=== PATIENT | female | born 1960 ===

== ENCOUNTER 2017-12-08 23:37 | Observation (INO) | payer MEDICARE, OTHER ==
[~2017-12-08] VITALS: Ht 162.6 cm; Wt 65.8 kg
[2017-12-09 04:03] LABS: BASOPHILS ABSOLUTE AUTO 0.11 K/mm3 (0.00-0.23); BASOPHILS PERCENT AUTO 1 % (0-2); EOSINOPHILS ABSOLUTE AUTO 0.29 K/mm3 (0.00-0.68); EOSINOPHILS PERCENT AUTO 2 % (0-6); Hemoglobin 15.1 g/dL (11.5-16.0); IMMATURE GRAN ABSOLUTE AUTO 0.02 K/mm3 (0.00-0.10); IMMATURE GRAN PERCENT AUTO 0 % (0-1); LYMPHOCYTES ABSOLUTE AUTO 4.88 K/mm3 (0.84-5.20); LYMPHOCYTES PERCENT AUTO 40 % (21-46); MONOCYTES ABSOLUTE AUTO 1.03 K/mm3 (0.16-1.47); MONOCYTES PERCENT AUTO 8 % (4-13); Mean Corpuscular HGB 32.1 pg (26.0-34.0); Mean Corpuscular HGB Conc 32.1 g/dL (31.5-36.5); Mean Corpuscular Volume 100 fL (80-100); Mean Platelet Volume 10.2 fL (9.1-12.4); NEUTROPHILS ABSOLUTE AUTO 5.96 K/mm3 (1.96-9.15); NEUTROPHILS PERCENT AUTO 48 % (41-73); Platelet Count 261 K/mm3 (150-400); RDW Coefficient Variation 12.1 % (11.7-14.2); RDW Standard Deviation 45.1 fL (35.1-46.3); White Blood Cell Count 12.29 K/mm3 (4.00-11.30)
[2017-12-09 04:29] LABS: Ethanol (Alcohol), Blood, Med <3 mg/dL; Salicylate 2.5 mg/dL (2.8-20.0); Valproic Acid 9.6 ug/mL (50.0-100.0)
[2017-12-09 04:30] LABS: Alanine Aminotransfer (ALT/SGP 34 U/L (12-78); Albumin/Globulin Ratio 1.1 (0.8-1.8); Alk Phos 66 U/L (50-136); Anion Gap 13 mmol/L (6-16); Aspartate Aminotrans (AST/SGOT 34 U/L (12-37); Bilirubin, Total 0.4 mg/dL (0.1-1.0); Blood Urea Nitrogen 14 mg/dL (8-24); Bun/Creatinine Ratio 19.5 (12.0-20.0); CO2, Blood 22 mmol/L (21-32); Calcium, Blood 9.8 mg/dL (8.5-10.1); Chloride, Blood 106 mmol/L (98-108); Creatinine, Blood 0.72 mg/dL (0.40-1.00); Globulin, Blood 3.7 g/dL (2.2-4.0); Glomerular Filtration Rate >60 (60-); Glucose, Blood 90 mg/dL (70-99); Potassium, Blood 3.9 mmol/L (3.5-5.5); Sodium, Blood 141 mmol/L (136-145); Thyroid Stimulating Hormone 0.142 uIU/mL (0.360-4.800); Total Protein, Blood 7.7 g/dL (6.4-8.2)
[2017-12-09 04:35] LABS: Lithium <0.20 mmol/L (0.60-1.20)
[2017-12-09 04:37] LABS: Acetaminophen, Random <2.0 ug/mL (10.0-30.0)
[2017-12-09] MEDS ORDERED: DIVA500EC PO (05:23)
[2017-12-09] MEDS ORDERED: LEVSOD125 PO (05:24)
[2017-12-09] MEDS ORDERED: LITH300ER PO (05:24)
[2017-12-10 12:03] LABS: Source, Urine Voided
[2017-12-10 12:05] LABS: Bilirubin, Urine Neg (Neg); Blood, Urine Neg (Neg); Glucose Qualitative, Urine Neg (Neg); Ketones, Urine Neg (Neg); Leukocyte Esterase, Urine Neg (Neg); Nitrite, Urine Neg (Neg); Protein, Urine Neg (Neg); Urobilinogen, Urine NORM (Normal); pH, Urine 6.5 (5.0-8.0)
[2017-12-10 12:18] LABS: Appearance, Urine Clear (Clear); Color, Urine Yellow (P-Yellow)
[2017-12-10 12:26] LABS: U Amphetamine Screen Not Detected; U Barbituate Screen Not Detected; U Benzodiazapine Screen Not Detected; U Buprenorphine Screen Not Detected; U Cannabinoids Screen Not Detected; U Cocaine Screen Not Detected; U Methadone Screen Not Detected; U Methamphetamine Screen Not Detected; U Opiates Screen Not Detected; U Oxycodone Screen Not Detected; U Phencyclidine Screen Not Detected; U Propoxyphene Screen Not Detected
== END 2017-12-10 22:05 ==
LOC: ER 23:37 → EOR 12-09 03:36
PROVIDERS: Emergency Medicine
DX: F23 Brief psychotic disorder (principal); F31.9 Bipolar disorder, unspecified; F25.9 Schizoaffective disorder, unspecified; Z79.899 Other long term (current) drug therapy
CPT/HCPCS: 80053; 80164; 80178; 81003; 81025; 84443; 85025; 96372; 99285-25; G0378; G0480

== ENCOUNTER 2021-08-27 21:19 | Observation (INO) | payer MEDICARE, OTHER ==
[~2021-08-27] VITALS: Ht 157.5 cm; Wt 54.8 kg
[~2021-08-27 21:19] MED LIST: DIVA500EC PO; LEVSOD125 PO; LITH300ER PO
[2021-08-27 22:09] LABS: Source, Urine Clean Catch
[2021-08-27 22:25] LABS: BASOPHILS PERCENT AUTO 1 % (0-2); EOSINOPHILS ABSOLUTE AUTO 0.13 K/mm3 (0.00-0.68); EOSINOPHILS PERCENT AUTO 2 % (0-6); Hematocrit 47.7 % (33.0-51.0); Hemoglobin 15.3 g/dL (11.5-16.0); IMMATURE GRAN ABSOLUTE AUTO 0.02 K/mm3 (0.00-0.10); IMMATURE GRAN PERCENT AUTO 0 % (0-1); LYMPHOCYTES ABSOLUTE AUTO 1.96 K/mm3 (0.84-5.20); LYMPHOCYTES PERCENT AUTO 24 % (21-46); MONOCYTES ABSOLUTE AUTO 0.55 K/mm3 (0.16-1.47); MONOCYTES PERCENT AUTO 7 % (4-13); Mean Corpuscular HGB 31.9 pg (26.0-34.0); Mean Corpuscular HGB Conc 32.1 g/dL (31.5-36.5); Mean Corpuscular Volume 99 fL (80-100); Mean Platelet Volume 9.6 fL (9.1-12.4); NEUTROPHILS ABSOLUTE AUTO 5.55 K/mm3 (1.96-9.15); NEUTROPHILS PERCENT AUTO 67 % (41-73); Platelet Count 291 K/mm3 (150-400); RDW Coefficient Variation 12.9 % (11.7-14.2); RDW Standard Deviation 47.6 fL (35.1-46.3); White Blood Cell Count 8.31 K/mm3 (4.00-11.30)
[2021-08-27 23:02] LABS: Lithium <0.20 mmol/L (0.60-1.20)
[2021-08-27 23:05] LABS: Alanine Aminotransfer (ALT/SGP 22 U/L (12-78); Albumin, Blood 3.7 g/dL (3.4-5.0); Alk Phos 73 U/L (50-136); Anion Gap 7 mmol/L (6-16); Aspartate Aminotrans (AST/SGOT 22 U/L (12-37); Bilirubin, Total 0.4 mg/dL (0.1-1.0); Blood Urea Nitrogen 21 mg/dL (8-24); Bun/Creatinine Ratio 21.6 (12.0-20.0); CO2, Blood 24 mmol/L (21-32); Calcium, Blood 10.4 mg/dL (8.5-10.1); Chloride, Blood 112 mmol/L (98-108); Creatinine, Blood 0.97 mg/dL (0.40-1.00); Ethanol (Alcohol), Blood, Med <3 mg/dL; Free Thyroxine 0.95 ng/dL (0.70-1.60); Globulin, Blood 3.7 g/dL (2.2-4.0); Glomerular Filtration Rate 58 (60-); Glucose, Blood 111 mg/dL (70-99); Potassium, Blood 3.7 mmol/L (3.5-5.5); Sodium, Blood 143 mmol/L (136-145); Total Protein, Blood 7.4 g/dL (6.4-8.2); Triiodothyronine, Free 2.16 pg/mL (2.18-3.98)
[2021-08-27 23:06] LABS: Bilirubin, Urine Neg (Neg); Blood, Urine 5+ (Neg); Glucose Qualitative, Urine Neg (Neg); Ketones, Urine Neg (Neg); Leukocyte Esterase, Urine 3+ (Neg); Nitrite, Urine Neg (Neg); Protein, Urine 2+ (Neg); Urobilinogen, Urine NORM (Normal); pH, Urine 6.5 (5.0-8.0)
[2021-08-27 23:10] LABS: Acetaminophen, Random <2.0 ug/mL (10.0-30.0)
[2021-08-27 23:10] LABS: U Amphetamine Screen Not Detected; U Barbituate Screen Not Detected; U Benzodiazapine Screen Not Detected; U Buprenorphine Screen Not Detected; U Cannabinoids Screen Not Detected; U Cocaine Screen Not Detected; U Methadone Screen Not Detected; U Methamphetamine Screen Not Detected; U Opiates Screen Not Detected; U Oxycodone Screen Not Detected; U Phencyclidine Screen Not Detected; U Propoxyphene Screen Not Detected
[2021-08-27 23:12] LABS: Appearance, Urine Cloudy (Clear); Color, Urine Yellow (P-Yellow)
[2021-08-27 23:22] LABS: White Blood Cells, Urine TNTC /hpf (0-5)
[2021-08-27 23:23] LABS: Bacteria Many /hpf; Squamous Epithelial Cells Mod /hpf (Few)
[2021-08-28 06:39] LABS: Influenza A, PCR NEGATIVE (NEGATIVE); Influenza B, PCR NEGATIVE (NEGATIVE); Resp Syncytial Virus, PCR NEGATIVE (NEGATIVE); SARS-Cov-2 (COVID-19) PCR, MMC NEGATIVE (NEGATIVE)
--- NOTE | 2021-09-05 05:29 | NUR ---
SHIFT SUMMARY 61 YR F ADMITTED ON 09/02/21 FOR DIMENTIA W. BEHAVIORS. FULL CODE. PT CAME TO MED UNIT THIS SHIFT FROM THE CRISIS UNIT IN THE ED. SHE WAS ANXIOUS ABOUT BEING IN A NEW PLACE AND WAS VERY DEMANDING/AMARJIT TO STAFF MEMBERS. SHE IS CONFUSED AND STATES SHE IS SCARED. PT WILL SIT BY HERSELF FOR HOURS AND TALK AND LAUGH VERY LOUDLY. SHE STATES THAT SHE HAS FAMILY ISSUES THAT ARE CONCERNING TO HER. KEEPING HER OCCUPIED W/ CROSSWORD PUZZLES AND COLORING SEEMS TO HELP TAKE HER MIND OFF OF THINGS. SHE IS WAITING FOR LONG-TERM PLACEMENT AND HER DAUGHTER HAS GUARDIANSHIP. SHE LIKES DECAF COFFEE W/ TWO CREAMS AND TWO SUGARS.
[2021-09-05] MEDS ORDERED: OLANZAPINE PO (15:05)
--- NOTE | 2021-09-05 16:34 | NUR ---
SHIFT SUMMARY; PATIENT INTERACTED WITH PATIENTS IN UNIT TODAY. SHE IS A LITTLE STAND OFFISH HOWEVER IS NOTED TO COME AND LISTEN AND INTERACT IF SPOKEN TOO BY OTHER PATIENTS. SHE IS NOT DEMANDING TODAY AND HAS PLEASANT AFFECT, SHE IS COOPERATIVE WITH CARE AND HAS MINIMAL WANTS OR NEEDS. HER VITAL SIGNS ARE WNL AND SHE NADN.
--- NOTE | 2021-09-06 05:09 | NUR ---
SHIFT SUMMARY 61 YR F ADMITTED FOR DEMENTIA W/ BEHAVIORS. FULL CODE. NO ACUTE CHANGES THIS SHIFT. PT IS INDEPENDANT IN HER ROOM AND SPENDS TIME IN THE HALLWAY VISITING W/ OTHER PATIENTS. SHE TALKS ALOT ABOUT HER FAMILY, ESPECIALLY HER DAUGHTERS AND STATES THAT SHE KNOWS THEY HAVE CALLED HERE AND NOONE HAS TOLD HER. SHE SEEMS TO GET AGITATED WHEN SPEAKING ABOUT HER FAMILY. SHE IS MOSTLY PLEASANT AND COOPERATIVE.
--- NOTE | 2021-09-06 17:59 | NUR ---
SHIFT SUMMARY PATIENT SITTING IN ROOM EATING DINNER. PATIENT SPENT MOST OF DAY AMBULATING BACK DICKEY AND VISITING WITH NEIGHBORING PATIENTS. PATIENT AWAITING [facility]. VSS. WILL CONTINUE TO MONITOR.
--- NOTE | 2021-09-07 06:45 | NUR ---
SHIFT SUMMARY PATIENT ALERT AND ORIENTED TO SELF, DELUSIONAL. NO COMPLAINTS OF PAIN OR SHORTNESS OF BREATH. NO ACUTE ISSUES NOTED OVERNIGHT. CALL LIGHT WITHIN REACH. REPORT GIVEN TO ONCOMING RN.
--- NOTE | 2021-09-07 18:55 | NUR ---
SHIFT SUMMARY PATIENT A&O TO SELF. TALK TO SELF MOST OF SHIFT. BECAME EASILY AGITATED WHEN SPEAKING TO OTHER PATIENTS. NO COMPLAINTS OF PAIN OR SOB. WILL CONTINUE TO MONITOR.
--- NOTE | 2021-09-08 06:34 | NUR ---
SHIFT SUMMARY PATIENT ALERT AND ORIENTED TO SELF. HAD NO COMPLAINTS OF PAIN OR SHORTNESS OF BREATH. NO ACUTE ISSUES NOTED OVERNIGHT. CALL LIGHT WITHIN REACH. REPORT GIVEN TO ONCOMING RN.
--- NOTE | 2021-09-08 19:28 | NUR ---
SHIFT SUMMARY A&O TO SELF. PATIENT TALKING TO SELF MOST OF SHIFT. PATIENT BECOMES EASILY AGITATED WHEN TALKING TO OTHER PATIENTS. NO SIGNIFICANT EVENTS T/O SHIFT. REPORT GIVEN TO ONCOMING RN.
--- NOTE | 2021-09-09 18:24 | NUR ---
SHIFT SUMMARY PATIENT A&O TO SELF ONLY. PATIENT TALKS TO SELF T/O SHIFT. AWAITING PLACEMENT TO [facility]. NO SIGNIFICANT EVENTS T/O SHIFT. PATIENT KEPT TO SELF IN ROOM OR LOOKING OUT HALLWAY WINDOW. WILL CONTINUE TO MONITOR.
--- NOTE | 2021-09-10 06:22 | NUR ---
SHIFT SUMMARY PT SLEPT FOR SEVERAL HOURS AT THE BEGINNING OF THE SHIFT BUT HAS BEEN AWAKE THE REMAINDER. A/O X 4, NO C/O PAIN OR NAUSEA, HUAN PO, AMBULATING INDEPENDENTLY IN ROOM AND HALLWAY, STEADY GAIT. PT TALKING TO SELF AT TIMES, WELL TO STAFF, SPEECH CLEAR. PT WEARING SAFETY GLASSES TO KEEP "PET DANDER" FROM GETTING IN HER EYES. VSS, ANTICIPATE D/C WHEN PLACEMENT DETERMINED.
--- NOTE | 2021-09-10 17:47 | NUR ---
SHIFT SUMMARY PT A&O X3, MOOD UP AND DOWN T/O SHIFT THOUGH EASILY REDIRECTABLE. PT WANDERED THROUGH HALLS T/O SHIFT. TALKING TO SELF AND OTHERS FREQUENTLY. ENJOYED WATCHING OUT WINDOW. VSS. CALL LIGHT W/IN REACH. ABLE TO RECALL STORIES FROM CHILDHOOD. TOLERATING PO INTAKE WELL.
--- NOTE | 2021-09-11 03:45 | NUR ---
SHIFT SUMMARY NO ACUTE CHANGES TO PT STATUS. PT SLEPT OFF AND ON THROUGH THE NIGHT. PT CONTINUES TO WALK THE HALLWAYS TALKING TO HERSELF, STAFF, AND OTHER PATIENTS. PT IS PLEASANTLY CONFUSED. CALL LIGHT WITHIN REACH AND WILL CONTINUE TO MONITOR.
[2021-09-11 14:34] LABS: BASOPHILS ABSOLUTE AUTO 0.07 K/mm3 (0.00-0.23); BASOPHILS PERCENT AUTO 1 % (0-2); EOSINOPHILS ABSOLUTE AUTO 0.18 K/mm3 (0.00-0.68); EOSINOPHILS PERCENT AUTO 3 % (0-6); Hematocrit 40.5 % (33.0-51.0); Hemoglobin 13.3 g/dL (11.5-16.0); IMMATURE GRAN PERCENT AUTO 0 % (0-1); LYMPHOCYTES ABSOLUTE AUTO 2.49 K/mm3 (0.84-5.20); LYMPHOCYTES PERCENT AUTO 37 % (21-46); MONOCYTES ABSOLUTE AUTO 0.38 K/mm3 (0.16-1.47); MONOCYTES PERCENT AUTO 6 % (4-13); Mean Corpuscular HGB Conc 32.8 g/dL (31.5-36.5); Mean Corpuscular Volume 97 fL (80-100); Mean Platelet Volume 9.2 fL (9.1-12.4); NEUTROPHILS ABSOLUTE AUTO 3.55 K/mm3 (1.96-9.15); NEUTROPHILS PERCENT AUTO 53 % (41-73); Platelet Count 288 K/mm3 (150-400); RDW Coefficient Variation 12.5 % (11.7-14.2); RDW Standard Deviation 44.8 fL (35.1-46.3); Red Blood Cell Count 4.16 M/mm3 (3.80-5.20); White Blood Cell Count 6.67 K/mm3 (4.00-11.30)
[2021-09-11 15:14] LABS: Albumin, Blood 3.5 g/dL (3.4-5.0); Bilirubin, Total 0.2 mg/dL (0.1-1.0); Bun/Creatinine Ratio 25.8 (12.0-20.0); Calcium, Blood 9.9 mg/dL (8.5-10.1); Creatinine, Blood 1.28 mg/dL (0.40-1.00); Globulin, Blood 3.5 g/dL (2.2-4.0); Magnesium, Blood 2.3 mg/dL (1.6-2.4); Potassium, Blood 4.4 mmol/L (3.5-5.5); Thyroid Stimulating Hormone 5.58 uIU/mL (0.360-4.800)
--- NOTE | 2021-09-11 16:52 | NUR ---
ALERT TO SELF. NO; TELE, OXYGEN OR IV ASSESS. WALKS IN HALLWAYS OFTEN, STEADY GAIT. PLEASANTLY CONFUSED. TALKS TO STAFF AND PATIENTS. NAD. AWAITING PLACEMENT. UNLABORED RESPIRATIONS. WCTM
--- NOTE | 2021-09-12 03:36 | NUR ---
SHIFT SUMMARY PT PLEASANT WITH ME, BUT REFUSES HER MEDICATION. CONTINUES TO WALK UP AND DOWN THE HALLS AND TALK. SHE TALKS TO HERSELF, STAFF, AND OTHER PTS. PT SEEMS CONFUSED AT TIMES AND SOME OF WHAT SHE TALKS ABOUT DOES NOT MAKE SENSE. SHE IS ALERT TO HERSELF, SOMETIMES PLACE, AND SOMETIMES TIME. SHE IS REDIRECTABLE. PT SLEEPING OFF AND ON THROUGH NIGHT. CALL LIGHT WITHIN REACH. WILL CONTINUE TO MONITOR.
--- NOTE | 2021-09-12 18:24 | NUR ---
PT WALKING INDEPENDENTLY IN HALLWAY, TALKING TO HERSELF AND EVERYONE ELSE. PLEASANT AND COOPERATIVE, TOOK AM MEDICATIONS WITHOUT DIFFICULTY. NO ACUTE CHANGES NOTED THIS SHIFT, WILL CONTINUE TO MONITOR AND REPORT TO ONCOMING RN.
--- NOTE | 2021-09-13 04:01 | NUR ---
SHIFT SUMMARY NO ACUTE CHANGES TO PT STATUS. PT PLEASANT AND COOPERATIVE WITH ME. PT WAS VERBALLY ABUSIVE TO PURCHASING/RECEIVING EARLIER THIS EVENING. SHE IS REDIRECTABLE. PT SLEEPING OFF AND ON THROUGH THE NIGHT. PT DOES HAVE SOME CONFUSION AND CONTINUES TO WALK UP AND DOWN THE HALLWAYS WHEN NOT SLEEPING. CALL LIGHT IS WITHIN HER REACH AND WILL CONTINUE TO MONITOR.
[2021-09-13 08:58] LABS: Bun/Creatinine Ratio 36.9 (12.0-20.0); Calcium, Blood 10.1 mg/dL (8.5-10.1); Creatinine, Blood 0.95 mg/dL (0.40-1.00); Potassium, Blood 4.5 mmol/L (3.5-5.5)
--- NOTE | 2021-09-14 05:05 | NUR ---
Shift summary Patient alert to self and unable to assess further due to patient hallucinations and flight of ideas. Overnight patient frequently ambulating the hallway speaking to self. Pleasant towards staff. No acute events.
--- NOTE | 2021-09-14 16:35 | NUR ---
SHIFT SUMMARY PATIENT DENIES PAIN, NAUSEA, AND SHORTNESS OF BREATH. PATIENT IS INDEPENDENT IN ROOM. PATIENT LIKES TO AMBULATE IN HALLWAY. PATIENT SPEAKS VERY FAST AND CHANGE TOPICS QUICKLY. PATIENT DOESNT FOLLOW CONVERSATION WELL AND WILL SAY RANDOM THINGS. PATIENT IS VERY PLEASANT WITH STAFF, LAUGHS AND JOKES A LOT. PATIENT IS EATING AND DRINKING WELL. PATIENT IS COOPERATIVE WITH CARE. AWAITING PLACEMENT.
--- NOTE | 2021-09-15 07:06 | NUR ---
Shift summary Patient with improved sleep however still with periods in which she would wake up and walk around. Refused seroquel. No acute changes noted.
--- NOTE | 2021-09-15 16:43 | NUR ---
SHIFT SUMMARY PATIENT DENIES PAIN, NAUSEA, AND SHORTNESS OF BREATH. PATIENT IS INDEPENDENT IN ROOM. PATIENT NAPPED ON AND OFF THIS SHIFT. PATIENT FREQUENTLY WALKS UP AND DOWN HALLWAY. PATIENT TALKS TO SELF, STAFF, AND OTHER PATIENTS. PATIENT A&O 2-3. A LOT OF TANGENTIAL SPEECH. PATIENT IS EATING AND DRINKING WELL. PATIENT IS PLEASANT AND COOPERATIVE WITH CARE.
--- NOTE | 2021-09-16 05:52 | NUR ---
SHIFT SUMMARY PT AWAKE OFF AND ON. WALKING UP AND DOWN THE HALLS AND TALKING NON STOP TO ANYONE NEAR BY WHEN AWAKE. CONVERSATION IS DISCONNECTED. SCATTERED THINKING. PT REFUSED SEROQUEL DOSE THIS EVENING BUT AGREED TO TAKE THYROID PILL THIS AM. REFUSED VITAL SIGNS THROUGHOUT THE SHIFT. PT CONTINUES TO AWAIT PLACEMENT. NO ACUTE CHANGES THIS EVENING.
--- NOTE | 2021-09-16 17:07 | NUR ---
SHIFT SUMMARY NO ACUTE CHANGES TO PRESENT THIS SHIFT. PT IS UP INDEPENDENTLY, WALKING HALLS ALL DAY LONG. PT FINALLY TOOK A SHOWER TODAY, BUT THEN PUT HER DIRTY CLOTHES BACK ON. PT IS NOT DIRECTABLE. PT WILL NOT TAKE SEROQUEL. DID NOT RESPOND TO DR RATLIFF'S INSTRUCTIONS EITHER. EATS AND DRINKS WELL. INDEPENDENT TO [facility]. NO C/O. ABLE TO MAKE NEEDS KNOWN.
--- NOTE | 2021-09-17 05:52 | NUR ---
SHIFT SUMMARY: PATIENT IS VERY ANXIOUS AND PARANIOD WITH AUDITORY AND VISUAL HALLUCINATIONS. PATIENT DUMPED SEROQUEL INTO HER SOUP AND PROCEEDED TO EAT ALL OF THE SOUP. DBP IS ELEVATED BUT STABLE. PATIENT IS ASYMPTOMATIC.
--- NOTE | 2021-09-17 13:57 | NUR ---
SHIFT SUMMARY NO ACUTE CHANGES TO PRESENT THIS SHIFT. PT CONTINUES TO WAIT PLACEMENT. AMBULATES UP AND DOWN HALLS FREQUENTLY AND BACK TO RM. RAMBLES NONSTOP. NONDIRECTABLE. SHOWER AGAIN TODAY; SELF. DENIES NEEDS AT THIS TIME. CALL LT AVAILABLE
--- NOTE | 2021-09-18 05:58 | NUR ---
SHIFT SUMMARY: PATIENT HAS TAKEN ALL MEDICATIONS THIS SHIFT. WALKING IN THE DICKEY AND RAMBLING WITH NONSENCILE CONVERSATIONS WITH HERSELF. HALLUCINATING VISUAL AND AUDITORY. DIFFICULT TO GET PATIENT TO SIT STILL FOR VS, BP READING IS QUESTIONABLE. NO COMPLAINTS OF PAIN OR DISCOMFORT.
--- NOTE | 2021-09-19 06:47 | NUR ---
Shift Summary Overnight patient with interrupted sleep. Multiple episodes where patient would come out of her room upset and yelling. PRN seroquel given with minimal effect. No other acute changes, patient refused VS and 0600 med.
--- NOTE | 2021-09-20 04:33 | NUR ---
SHIFT SUMMARY: A/O TO SELF ONLY. INDEPENDENT AMBULATION AND ADL'S. PATIENT VERY ANXIOUS, IRRITABLE AND AGGITATED AT THE BEGINNING OF SHIFT. PACING, YELLING, RAMBLING SPEACH, PARANOIA, DIFFICULTY FOLLOWING CONVERSATION AND COMMANDS. POSITIVE RESULTS POST ADMINSTRATION OF NIGHT TIME MEDS- PT ABLE TO REST- UTILIZING DIFFERENT STAFF MEMBERS AND APPROACHES FOR PATIENT TO COMPLY TO TAKE ORAL MEDICATIONS. PATIENT AWOKE AGAIN AROUND 0130 CONTINUED RAMBLING, ANXIOUSNESS, IRRITABLITY- PRN SEROQUEL ADMINISTERED- PT ABLE TO REST POST PRN MEDICATION.
--- NOTE | 2021-09-20 14:50 | NUR ---
COVERING FOR PRIMARY RN AT LUNCH. PT BECAME AGITATED, WALKING QUICKLY UP AND DOWN HALLWAY, SHOUTING LOUDLY CAUSING OTHER PATIENTS TO BECOME AGITATED. ASKED PT GO BACK IN TO HER ROOM, WHICH SHE REFUSED TO DO AND BECAME MORE AGITATED, SHOUTING LOUDER. ZORAN BLAKE CALLED. SECURITY ARRIVED DID OTHER NURSING STAFF. PT ESCORTED BACK TO HER ROOM. IM OLANZAPINE 10 MG GIVEN. PT'S DEMEANOR HAS NOT CHANGED MUCH AT THIS TIME. REPORT GIVEN TO PRIMARY RN UPON HER RETURN. WILL CONTINUE TO MONITOR.
--- NOTE | 2021-09-20 17:12 | NUR ---
DAY SHIFT SUMMARY 61 YR OLD FEMALE ADMITTED FOR PSYCHOSIS AND GRAVE DISABLE. INDEPENDENT TO BATHROOM. MEDICATED PER EMAR FOR PSYCHOSIS THIS SHIFT. WORD SALAD, UNABLE TO REDIRECT, AGRESSIVE, KEEPING OTHER PATIENTS ON DICKEY AGITAITED. SECURITY CALLED FOR CODE HAYDEN IN AFTERNOON. PT UP PACING HALLWAY AND YELLING NONSENSICAL PHRASES.
--- NOTE | 2021-09-21 03:39 | NUR ---
SHIFT SUMMARY: AT THE BEGINNING OF SHIFT PATINET EXPERIENCING INCREASED AGGITATION, IRRITABILITY WITH STAFF AND OTHER PATIENTS. CONTINUOUS YELLING, SCREAMING AND CURSING, NOT FOLLOWING DIRECTIONS OR INSTRUCTIONS. PT VERY RESTLESS, PACING, ANXIOUS IN APPEARANCE. PRN MEDS ADMINISTERED- REVIEW EMAR. INCREASED LENGTH OF TIME FOR THESE MEDS TO TAKE EFFECT. AFTER A COUPLE OF HOURS PATIENT VISIBLY BECOMING LESS ANXIOUS AND WENT TO SLEEP. INDEPENDENT AMBULATION AND CARE OF ADL'S THROUGHOUT SHIFT.
--- NOTE | 2021-09-21 18:35 | NUR ---
Shift Summary A/O to self. Pacing in hallway with rambling nonsensical speech throughout day. Had a brief nap. Zyprexa given throughout day to control agitation. Patient is difficult to redirect. Can get easily agitated with simple commands. Overall has been agreeable to take some meds. Did refuse am meds, Dr. Astorga aware. Last bm charted 09/17. Asked patient if she has had any bm's today, patient stated "I poop everyday".
--- NOTE | 2021-09-22 04:38 | NUR ---
SHIFT SUMMARY: PATIENT ORIENTED TO SELF ONLY. CONTINUED RAMBLED SPEECH, PACING, RESTLESSNESS, OCCASIONALLY RAISING VOICE AT THE BEGINNING OF SHIFT. POST ADMINSTRATION OF SCHEDULED SEROQUEL AND PRN PO ZYPREXA PATIENT WAS SIGNIFICANTLY CALMER- NO ADDITIONAL SCREAMING, INCREASED ABILITY TO FOLLOW COMMANDS AND INSTRUCTIONS, COMPLIANT, PLEASANT, SLEPT WELL THROUGHOUT THE NIGHT.
[2021-09-22 11:29] LABS: BASOPHILS ABSOLUTE AUTO 0.06 K/mm3 (0.00-0.23); BASOPHILS PERCENT AUTO 1 % (0-2); EOSINOPHILS ABSOLUTE AUTO 0.16 K/mm3 (0.00-0.68); EOSINOPHILS PERCENT AUTO 3 % (0-6); Hematocrit 39.8 % (33.0-51.0); Hemoglobin 12.8 g/dL (11.5-16.0); IMMATURE GRAN ABSOLUTE AUTO 0.01 K/mm3 (0.00-0.10); IMMATURE GRAN PERCENT AUTO 0 % (0-1); LYMPHOCYTES ABSOLUTE AUTO 1.43 K/mm3 (0.84-5.20); LYMPHOCYTES PERCENT AUTO 27 % (21-46); MONOCYTES ABSOLUTE AUTO 0.48 K/mm3 (0.16-1.47); MONOCYTES PERCENT AUTO 9 % (4-13); Mean Corpuscular HGB 31.5 pg (26.0-34.0); Mean Corpuscular HGB Conc 32.2 g/dL (31.5-36.5); Mean Corpuscular Volume 98 fL (80-100); Mean Platelet Volume 9.8 fL (9.1-12.4); NEUTROPHILS ABSOLUTE AUTO 3.18 K/mm3 (1.96-9.15); NEUTROPHILS PERCENT AUTO 60 % (41-73); Platelet Count 247 K/mm3 (150-400); RDW Coefficient Variation 12.6 % (11.7-14.2); RDW Standard Deviation 45.3 fL (35.1-46.3); Red Blood Cell Count 4.06 M/mm3 (3.80-5.20); White Blood Cell Count 5.32 K/mm3 (4.00-11.30)
[2021-09-22 11:52] LABS: Bun/Creatinine Ratio 40.6 (12.0-20.0); Creatinine, Blood 1.01 mg/dL (0.40-1.00); Potassium, Blood 4.3 mmol/L (3.5-5.5)
--- NOTE | 2021-09-22 18:44 | NUR ---
SHIFT SUMMARY THE PATIENT IS ALERT TO SELF AND FAMILY, COOPERATIVE WITH CARE THIS SHIFT. THE PATIENT CONTINUES TO RAMBLE AND SHOUT OUT AT TIMES. THIS NURSE SENT THE PATIENT BACK TO THEIR ROOM AFTER SHOUTING AT ANOTHER PATIENT. THE PATIENT WAS MEDICATED WITH ZYPREXA X2 PRN TODAY. THEY HAVE BEEN OUT IN THE DICKEY FOR MOST OF THE SHIFT. NO ACUTE CHANGES. WILL CONTINUE CARE UNTIL SHIFT REPORT IS GIVEN TO ONCOMING NURSE.
--- NOTE | 2021-09-23 04:57 | NUR ---
SHIFT SUMMARY: PATIENT A/O TO SELF. PACING AND RAMBLING SPEECH CONTINUED. OBSERVED IMPROVED ABILITY TO HOLD SOME CONVERSATION AND FOLLOW DIRECTION. IMPROVED COGNITION, MOOD AND DECREASED AGGITATION WITH ADMINISTRATION OF PRN ZYPREXA. INDEPENDENT AMBULATION AND COMPLETION OF ADL'S.
--- NOTE | 2021-09-23 18:12 | NUR ---
SHIFT SUMMARY THE PATIENT IS ALERT TO SELF CONFUSED, BUT COOPERATIVE WITH CARE. REDIRECTABLE THE PATIENT WANDERS THE DICKEY AND RAMBLES A LOT. THEY CAN BE DEFENSIVE AT TIMES. TAKES MEDS BEST WHOLE WITH VANILLA PUDDING BUT CAN TAKE THEM WITH WATER WELL. ZYPREXA GIVEN X3 PRN FOR AGITATION. PATIENT WILL TAKE THINGS OFF OF NURSE BACK TENDER FOURDRINIER COMPUTERS. PATIENT WILL PENG THINGS IN THEIR ROOM AT TIMES. PATIENT IS AWAITING PLACEMENT. NO ACUTE CHANGES THIS SHIFT. THIS NURSE WILL CONTINUE TO CARE FOR THE PATIENT UNTIL SHIFT REPORT IS GIVEN TO ONCOMING NURSE.
--- NOTE | 2021-09-24 04:28 | NUR ---
SHIFT SUMMARY: PT IS ALERT AND CONFUSED. PT WANDERING IN THE DICKEY INTERMITTENTLY, VERY TALKATIVE. PT REQUESTING FOOD AND DRINKS, GIVEN. PT MOVED FROM ROOM 353 TO ROOM 351 SO REPAIRS CAN BE MADE, SHE WAS COOPERATIVE WITH THE MOVE. PT COOPERATIVE THROUGHOUT THE NIGHT, SLEPT INTERMITTENTLY. PT SHOWS NO S/S FOR PAIN, NAUSEA, VOMITING, OR SOB. BED IN LOW POSITION, CALL LIGHT WITHIN REACH. WILL CONTINUE TO MONITOR.
--- NOTE | 2021-09-24 07:56 | NUR ---
START OF SHIFT RECEIVED REPORT, ASSUMED CARE OF PT.
--- NOTE | 2021-09-24 16:08 | NUR ---
STATUS UPDATE PT NAPPED FOR APPROXIMATELY 2 HRS THIS AFTERNOON AND WOKE UP AGITATED, PACING THE HALLS SPEAKING LOUDLY & FORCEFULLY. SHE BECAME TEARFUL AND EMOTIONAL ABOUT AN EVENT THAT LIKELY HAPPENED IN HER PAST. MEDICATED HER WITH MD PRESCRIBED PRN ZYPREXA MEDICATION AT 5 MG.
--- NOTE | 2021-09-24 18:39 | NUR ---
SHIFT SUMMARY PT IS A&O X 2. HAS BEEN PACING INDEPENDENTLY IN THE HALLS OFF & ON TODAY TALKING OUT LOUD RATHER FORCEFULLY TO NO ONE IN PARTICULAR. HAS BEEN EASILY RE-DIRECTED WHEN NEEDED. DID APPEAR TO NAP THIS AFTERNOON FOR APPROXIMATELY 2 HOURS. MEDICATED 2 X'S WITH ZYPREXA. APPETITE IS GOOD. VSS.
--- NOTE | 2021-09-24 22:30 | NUR ---
PT SLEEPING IN BED - RESPIRATIONS EVEN AND UNLABORED. FLUIDS AT BEDSIDE. CALL LIGHT IN REACH. BED IN LOW POSITION.
--- NOTE | 2021-09-25 01:32 | NUR ---
PT AWAKE, TALKING TO STAFF. PT HAS BEEN SLEEPING FOR APPX 3 HOURS.
--- NOTE | 2021-09-25 02:03 | NUR ---
PT AMBULATING IN HALLS, INCREASED AGITATION, NOT EASILY REDIRECTABLE. OFFERRED PUDDING ( THIS IS WHAT SHE REQUESTED EARLIER), AND ZYPREXA - PT REFUSED BOTH. PT WENT BACK TO HER ROOM FOR A MOMENT, BACK IN DICKEY, INCREASED AGITATION.
--- NOTE | 2021-09-25 02:10 | NUR ---
PT IS SITTING AT THE END OF THE HALLWAY, LOOKING OUT THE WINDOW. CONTINUES WITH TANGENTIAL THINKING, IRRITABLE, WITH VERBAL OUTBURSTS. UPDATED COLTON, MAINE. WILL CALL SECURITY IF NECESSARY. CONTINUING TO MONITOR.
--- NOTE | 2021-09-25 02:40 | NUR ---
JESSE LEWIS - PT SAID "NO". PT IS CURRENTLY IN ROOM.
--- NOTE | 2021-09-25 03:35 | NUR ---
PT HAS CALMED DOWN, TALKING IN A LOWER TONE OF VOICE IN HER ROOM, AND WHEN SHE AMBULATES OUT INTO THE DICKEY.
--- NOTE | 2021-09-25 06:10 | NUR ---
SHIFT SUMMARY - PT SLEPT FOR APPX 5 HOURS LAST NOC. PT HAS OTHERWISE BEEN AMBULATING IN THE HALLS OR IN HER ROOM, WITH CONFUSED CONVERSATION, TANGENTIAL THOUGHTS. PT HAS ESCALATED IN HER BEHAVIOR FOR APPX 1/2 HOUR - BUT WAS ABLE TO CALM HERSELF DOWN - PT REFUSED MEDICATION OFFERRED. PT TOOK HER THYROID MEDICATION WITHOUT COMPLICATIONS THIS AM. PT IS AWAKE, LOOKING OUT THE DICKEY WINDOW. CARE MANAGEMENT IS ON THE CASE.
--- NOTE | 2021-09-25 06:41 | NUR ---
PT AMBULATING IN THE HALLS, MUCH CALMER THIS AM, AND MORE APPROPRIATE BEHAVIOR. PT REQUESTING ICE WATER, TEA, AND COFFEE - ALL PROVIDED BY [employer].
--- NOTE | 2021-09-25 07:37 | NUR ---
START OF SHIFT RECEIVED REPORT, ASSUMED CARE OF PT.
--- NOTE | 2021-09-25 18:20 | NUR ---
SHIFT SUMMARY PT HAS BEEN PACING THE HALLS THROUGHOUT SHIFT TALKING FORECEFULLY TO NO ONE IN PARTICULAR WITH VERBAL ESCALATION. APPEARING & SOUNDING ANGRY AT TIMES. WILL ALLOW RE-DIRECTION. MEDICATED TWICE. SEE EMAR. VSS. APPETITE GOOD. PT DID NOT NAP TODAY. ATTEMPTS TO FIND PLACEMENT ARE CONTINUING.
--- NOTE | 2021-09-26 05:20 | NUR ---
SHIFT SUMMARY PATIENT ALERT AND ORIENTED X3. HAD NO COMPLAINTS OF PAIN OR SHORTNESS OF BREATH. NO ACUTE ISSUES NOTED OVERNIGHT. CALL LIGHT WITHIN REACH. REPORT GIVEN TO ONCOMING RN.
--- NOTE | 2021-09-26 17:39 | NUR ---
SHIFT SUMMARY: PATIENT HAS BEEN PACING THE HALLS THROUGHOUT MY SHIFT, CONSTANTLY RAMBLING TO NO ONE IN PARTICULAR. PATIENT OCCASIONALLY ESCALATES, BUT SHE IS ABLE TO BE RE-DIRECTED. PT MEDICATED WITH PO ZYPREXA TWICE TODAY. APPETITE HAS BEEN GOOD TODAY. PATIENT SHOWERED INDEPENDENTLY. ATTEMPTS TO FIND PLACEMENT ARE CONTINUING.
--- NOTE | 2021-09-27 06:08 | NUR ---
SHIFT SUMMARY PATIENT ALERT AND ORIENTED X3. MEDICATED PER EMAR FOR AGITATION THIS MORNING. NO ACUTE ISSUES NOTED OVERNIGHT. CALL LIGHT WITHIN REACH. REPORT GIVEN TO ONCOMING RN.
--- NOTE | 2021-09-28 02:39 | NUR ---
SHIFT SUMMARY A/O TO SELF AND TALKS OFTEN ABOUT FAMILY. PT VERY AGGITATED AT THE BEGINING OF THE SHIFT, SLEPT SOME THROUGHOUT THE NIGHT AND WOKE UP MUCH MORE PLEASANT. VOIDING AND TOLERATING PO INTAKE. VITAL SIGNS STABLE. NO IV ACCESS NEEDED. AWAITING PLACEMENT. WILL CONTINUE TO MONITOR AND REPORT TO ONCOMING RN.
--- NOTE | 2021-09-28 07:21 | NUR ---
Rn summary: I assumed care of patient at 0300. Pt was sleeping until about 0445. Pt up in hallway. Pt is cooperative but talkative. She makes sence with flight of ideas intertwined with basic conversation. Patent took am med without difficulty. Pt in and out of room and hallway. No changes.
--- NOTE | 2021-09-28 18:09 | NUR ---
SHIFT SUMMARY PATIENT DENIES PAIN, NAUSEA, AND SHORTNESS OF BREATH. PATIENT IS INDEPENDENT. PATIENT FREQUENTLY WALKS IN HALLWAY. PATIENT HAS RAPID SPEECH AND IS VERY NONSENSICAL. PATIENT DOES NOT ANSWER DIRECTIONS DIRECTLY. PATIENT IS MOSTLY REDIRECTABLE. PATIENT WAS MEDICATED X1 FOR AGITATION DUE TO INTERACTION WITH ANOTHER PATIENT. PATIENT DID TAKE AN AFTERNOON NAP. INCREASED BEDTIME SEROQUEL. PATIENT IS EATING AND DRINKING WELL. PATIENT IS MOSTLY PLEASANT AND COOPERATIVE WITH CARE.
--- NOTE | 2021-09-29 03:10 | NUR ---
PT ASKS TO HAVE BP TAKEN. BP 106/76. PT REFUSED TO HAVE VITALS TAKEN LAST NIGHT BY THE SPRINKLER DRIVER.
--- NOTE | 2021-09-29 04:07 | NUR ---
SHIFT SUMMARY PT PLEASANT AND COOPERATIVE WITH THIS RN, BUT CAN BECOME AGITATED OR AGRESSIVE WITH OTHER STAFF AND PTS. PT HAS HAD ISSUES WITH ANOTHER FEMALE PT RECENTLY. PT SLEPT OFF AND ON TONIGHT, ASKING FOR SNACKS AND COFFEE FREQUENTLY. PT MAKES RAMBLING STATEMENTS AND IS AT TIMES HARD TO FOLLOW HER TRAIN OF THOUGHT. CALL LIGHT IS WITHIN REACH. WILL CONTINUE TO MONITOR.
--- NOTE | 2021-09-29 18:10 | NUR ---
SHIFT SUMMARY PATIENT DENIES PAIN, NAUSEA, AND SHORTNESS OF BREATH. PATIENT IS INDEPENDENT IN ROOM. PATIENT WAS AGITATED THROUGHOUT DAY. PATIENT YELLING IN HALLWAY, BECAME VERBALLY AGGRESSIVE WITH STAFF MULTIPLE TIMES. PATIENT NOT REDIRECTABLE AT TIMES. PRN ZYPREXA GIVEN X2. THIS SEEMED TO HAVE GOOD EFFECT. ABLE TO REDIRECT PATIENT BACK TO HER ROOM WHERE SHE LAID DOWN FOR AWHILE. PATIENT IS EATING AND DRINKING WELL. PATIENT IS MOSTLY COOPERATIVE WITH CARE.
--- NOTE | 2021-09-30 04:16 | NUR ---
SHIFT SUMMARY: PATIENT ORIENTED TO SELF. NONSENSICAL PRESSURED SPEECH. WANDERING HALLS, ARGUMENTATIVE WITH STAFF AT TIMES. COMPLIANT WITH MEDICATION ADMINISTRATION. NO SIGNIFICNAT EVENTS. SLEPT WELL THROUGH THE NIGHT. TM.
--- NOTE | 2021-09-30 17:31 | NUR ---
SHIFT SUMMARY PATIENT A&O TO SELF. INDEPENDENT IN ROOM. WILL PACE HALLS T/O SHIFT TALKING TO SELF. NO SIGNIFICANT EVENTS T/O SHIFT. WILL CONTINUE TO MONITOR.
--- NOTE | 2021-10-01 04:29 | NUR ---
SHIFT SUMMARY ADMITTED FOR PSYCHOSIS. FULL CODE. PLAN IS FOR PLACEMENT. PT IS INDEPENDENT IN ROOM. SHE IS CONFUSED AND HALLUCINATES. RA. REGULAR DIET. SHE CAN BE REDIRECTED. SHE WAS CALM AND COOPERATIVE THIS SHIFT. SHE DID NOT SLEEP. HX: SCHIZOPHRENIA.
--- NOTE | 2021-10-01 17:54 | NUR ---
SHIFT SUMMARY A/O TO SELF ONLY. PARANOID THOUGHTS AND MILDLY PRESSURED SPEECH. IND IN HALLWAYS. VSS, NO ACUTE CHANGES AT THIS TIME. BED IN LOWEST POSITION, CALL LIGHT IN REACH. WILL CONTINUE TO MONITOR AND REPORT TO ONCOMING RN.
--- NOTE | 2021-10-02 04:53 | NUR ---
SHIFT SUMMARY: PATIENT HAD A NICE LONG VISIT WITH HER SISTER LAST NIGHT. TOOK HS MEDS, NO REPORTS OF PAIN OR DISCOMFORT. SLEPT APPROXIMATLY 5 HOURS AND IS NOW WALKING IN THE DICKEY WITH A STEADY GAIT. PATIENT CONTINUES TO HAVE AUDITORY AND VISUAL HALLUCINATIONS.
--- NOTE | 2021-10-02 17:42 | NUR ---
END OF SHIFT SUMMARY Pt doing well this shift, took all morning medications. Spent all day walking cook way, chatting with staff and other patient. No behaviors or concerns this shift. Vitals stable.
--- NOTE | 2021-10-03 07:39 | NUR ---
SHIFT SUMMARY: PATIENT IS ALERT TO SLEF AND PLACE. CONTINUES TO HAVE AUDIORY AND VISUAL HALLUCINATIONS. WOKE THIS AM AND BECAME VERY ANXIOUS. PATIENT WAS ALOWWED TO VERBALIZE FEELINGS AND ANXIETY AND WAS REMINDED NOT TO BE TO LOUD IN THE DICKEY WHILE OTHERS WERE SLEEPING. PATIENT WAS EVENTUALLY REDIRECTED AND DID NOT REQUIRE ANY PRN MEDICATION.
--- NOTE | 2021-10-03 10:20 | NUR ---
CALL DR LAWSON CALLED TO LET HIM KNOW THAT MS MCWILLIAMS IS REFUSING HER MEDS THIS AM. BP 131 SYSTOLIC. MD PAULA
--- NOTE | 2021-10-03 18:08 | NUR ---
SHIFT SUMMARY MS MCWILLIAMS IS ALERT, ORIENTATED TO SELF. SHE HAS SPENT THE DAY WALKING IN THE HALLS, TALKING WITH CLEAR SPEACH THAT IS NON-SENSICAL. SHE HAS BEEN VERY TALKATIVE, BUT HAS BEEN MOSTLY CALM, RAISED VOICE AT TIMES, BUT HAS BEEN ABLE TO SETTLE BACK TO A CALMER TONE. SHE REFUSED HER 0900 MEDS THIS MORNING - DR RENNY PAULA. NO OTHER EVENTS TODAY.
--- NOTE | 2021-10-04 05:29 | NUR ---
SHIFT SUMMARY: PATIENT HAS BEEN IN THE DICKEY A LOT THIS SHIFT. LOUD AT TIMES AND NEEDS REMINDING TO LOWER HER VOICE. REFUSED HS SEROQUEL BUT DID TAKE THYROID MEDICATION.BP IS ELEVATED, EDUCATION WAS GIVEN ON THE EFFECT OF REFUSING HER BP MEDICATION IS A RISE IN BLOOD PRESSURE.
--- NOTE | 2021-10-04 16:49 | NUR ---
SHIFT SUMMARY: NO NEW EVENTS. WALKED IN HALLWAY, HALLUCINATING AND TALKING NON STOP BUT WAS CALM AND NOT SHOUTING. DENIED PAIN. USING BR INDEPENDENTLY. NO BEHAVIORS REQUIRING PRN MEDICATIONS. GOOD APPETITE. AWAITING PLACEMENT.
--- NOTE | 2021-10-05 05:19 | NUR ---
SHIFT SUMMARY: PATIENT WOKE THIS AM VERY AGGITATED. CAME OUT INTO THE DICKEY TALKING LOUDLY. PACING THE DICKEY BECOMING ARGUMENTATIVE WITH STAFF WHEN WE TRY TO CALM HER. PRN ZYPREXA WAS GIVEN WITH GOOD EFFECT. PATIENT IS NOW SITTING CALMER AND QUIETER IN THE CHAIR.
--- NOTE | 2021-10-05 17:29 | NUR ---
SHIFT SUMMARY 61 Y F ADMITTED FOR PSYCHOSIS WITH A HX OF SCHIZOPHRENIA AND HTN. PT IS A&O TO SELF AND PLACE. PT HAS BEEN UP IN DICKEY PACING AND TALKING NONSENSICAL TODAY. SHE HAS BEEN PLEASANT AND COOPERATIVE WITH CARE AND EASILY REDIRECTED. GUARDIANSHIP HAS BEEN ESTABLISHED AND D/C PLANNING IS PENDING PLACEMENT.
--- NOTE | 2021-10-06 06:40 | NUR ---
SHIFT SUMMARY: PATIENT HAD A VISIT FROM WITH HER SISTER LAST NIGHT. BROUGHT HER SOME CLEAN CLOTHING. AFTER SISTER LEFT PATIENT PACED IN THE DIKCEY AND WAS TALKING VERY LOUDLY. WHEN SHE WAS ASKED TO GO BACK TO HER ROOM SO SHE WOULD NOT DISTURB THE OTHER PATIENTS, SHE BECAME VERY ANGREE AND FINALLY WENT THE HER ROOM AND WENT TO SLEEP. WOKE AT 0430 VERY AGGITATED AND AGSIN WAS PACING IN THE DICKEY TALKING NONSENCILE AND VERY LOUDLY. PRN ZIPREXA WAS GIVEN WITH AM SYNTHROID.
--- NOTE | 2021-10-06 21:16 | NUR ---
WAS COMPLAINING OF PAIN "A;; OVER" BUT REFUSED ANALGESIC WHEN OFFERED. NO NOTED S/ ACUTE PHYSICAL DISTRESS. ABLE TO AMBULATE WITHOUT NOTED DIFFICULTIES. CALL LIGHT IN REACH
--- NOTE | 2021-10-07 03:50 | NUR ---
CARTON MACHINE OPERATOR SUMMARY AWAKE AT SHIFT COMMENCE, PACING AND VERBALIZING WORD SALADS. VOICED FELT CAIO "ALL OVER" BUT REFUSED ANALGESICS WHEN OFFERED. TOLERATED HS SEROQUEL AND EVENTUALLY WENT BACK TO ROOM AND WENT TO SLEEP IN HER BED. CALL LIGHT IN REACH.
--- NOTE | 2021-10-07 16:30 | NUR ---
DAY SHIFT SUMMARY 61 YR OLD FEMALE PT WITH PSYCHOSIS AND GRAVE DISABLIITY. A/O 1-2. WORD SALAD WITH FLIGHT OF IDEAS. PT INDEPENDENT WITH AMBULATION, RA. NO ACUTE CHANGES THIS SHIFT. CALL LIGHT WITHIN REACH. WAITING PLACEMENT WITH MEMORY CARE.
--- NOTE | 2021-10-07 22:04 | NUR ---
PT appears to be resting after HS medication. Earlier she was pacing & repeatedly pushing call johnston or punning the bathroom alarm. She pulled the code bluebutton once & when asked about unmet needs she says she has none. Declined tylenol for bilat foot & neck pain. Up indep in room ambulated ad kev in halls. Flight of ideas with focus on Family, scientologist, HUD housing, & MD hold. multiple requests while awake with attention seeking behaviors.
--- NOTE | 2021-10-08 17:33 | NUR ---
DAY SHIFT SUMMARY 61 YR OLD FEMALE WITH PSYCHOSIS AND GRAVE DISABLILITY. PT ON RA, A/O X2, WORD SALAD AND FLIGHT OF IDEAS. NO IV ORDER. WAITING PLACEMENT WITH MEMORY CARE. MEDS TAKEN WITH VANILLA PUDDING. NO ACUTE CHANGES THIS SHIFT. INDEPENDENT IN ROOM AND IN HALLWAY.
--- NOTE | 2021-10-09 06:39 | NUR ---
PT CONTINUES TO TALK ALMOST NONSTOP WHILE AWAKE & SHE IS AT TIMES VERY LOUD. PRN SEROQUEL GIVEN THIS AM WITH SNACK. SEROQUEL HELPUL TO DESCREASE AGGITATED BEHAVIOR.
--- NOTE | 2021-10-09 18:40 | NUR ---
SHIFT SUMMARY: PT. HAS BEEN UP PACING THE DICKEY THE ENTIRE DAY. SHE IS AXOX2 (SELF, OTHERS) AMBULATORY, AND, NEEDS MIN. GUIDANCE W/ CARE. PT. HAS LOOSE ENDED THOUGHTS AND HER CONVERSATIONS BOUNCE FROM TOPIC TO TOPIC. SHE GETS HERSELF WORKED UP ABOUT A FEW TOPICS "AMMONIA IN THE FLOOR", "HER BED BEING SOAKED IN URINE", ETC.. SHE HAS BEEN TALKED DOWN EVERYTIME SHE GOT WORKED UP TODAY. PT. IS PLEASENT TO TALK TO AND HAS NO COMPLAINTS AT THIS TIME.
--- NOTE | 2021-10-10 03:37 | NUR ---
61 year old Female with hx of several psych inpt hospitalizations for schitzophrenia & currently for dementia with behavior disturbance was admitted 09/04/2021 with psychosis & grave disability. She continues to need secure environment due to dementia & schitzophrenia
--- NOTE | 2021-10-10 06:50 | NUR ---
PT medicated for rumination & paranoid type delusions this am with 5 mg oral zyprexa with helpful effect.
--- NOTE | 2021-10-10 18:26 | NUR ---
SHIFT SUMMARY PT CONTINUES TO AWAIT PLACEMENT. SHE IS ALERT AND COOPERATIVE WITH CARE. PT TALKS CONTINUOUSLY AND HAS DELUSIONS. IND IN ROOM AND THE HALLS. VSS. WILL REPORT TO JOSE EASON.
--- NOTE | 2021-10-11 04:11 | NUR ---
FOOD TECHNOLOGY TEACHER SUMMARY PT AWAITING PLACEMENT IN MEMORY CARE. SHE HAS VERY TANGENTIAL AND RAMBLING SPEECH. SHE IS COOPERATIVE, BUT SOMEWHAT LABILE IN MOOD. PT SLEPT THROUGH MOST OF THE SHIFT AFTER BEING GIVEN HER PM SEROQUEL. SHE IS ALERT AND ORIENTED X2-3 BUT MOSTLY CONFUSED AND TELLING STORIES OF FAMILY.
--- NOTE | 2021-10-11 16:31 | NUR ---
PT WAS AWAKE IN THE BEGINNING OF THE SHIFT. PT TOOK HER MEDICATION WITH SOME REORIENTATION. PT ATE ALL MEALS THROUGHOUT THE SHIFT. PT PACING IN THE HALLS HAVING NONSENSICAL CONVERSATIONS THROUGHOUT THE SHIFT. PT HAS BEEN CALM, PLEASANT DURING THE SHIFT. PT INTERACTS WITH STAFF IN A SAFE AND NONAGGRESSIVE MANNER.
--- NOTE | 2021-10-11 17:30 | NUR ---
SHIFT SUMMARY PT AWAKE AT START OF SHIFT, SITTING ON BENCH IN RM AND LOOKING OUT WINDOW. PT HAS BEEN PLEASANT AND CO-OP, WANDERING BACK AND FORTH IN HALLWAY TALKING TO HERSELF AND STAFF; MOSTLY NONSENSICAL CONVERSATIONS. NO S/SX OF DISTRESS, NO C/O PAIN. PT CONTINUES TO WAIT FOR PLACEMENT TO MEMORY CARE. ABLE TO MAKE NEEDS KNOWN.
--- NOTE | 2021-10-12 04:07 | NUR ---
SHIFT SUMMARY PT SLEPT ROUGHLY 4 HRS STRAIGHT TONIGHT. AOX2-SELF, FOLLOWING SIMPLE DIRECTIONS, FAMILY. CONFUSED, NONSENSICAL, TANGETABLE SPEECH & RESPONSES. HAVING VISUAL & AUDITORY HALLUCINATIONS. REPORTS "SISTER" SITTING IN RM, NO ONE PRESENT BUT STAFF. PARANOID, ANXIOUS, AGITATED THIS AM, MEDICATED 1X c 5MG PO ZYPREXA. TOOK MEDS WHOLE IN PUDDING. VSS. NO S/SX N/V, DYSPNEA, OR PAIN. UP IND AMBULATING DICKEY & IN RM. AWAITING PLACEMENT. ABLE TO MAKE NEEDS KNOWN.
--- NOTE | 2021-10-12 04:50 | NUR ---
PT REFUSING VITAL SIGNS THIS AM
--- NOTE | 2021-10-12 17:12 | NUR ---
SHIFT SUMMARY PT WALKING UP AND DOWN HALLWAY THROUGHOUT THE DAY. HAS GOTTEN QUITE LOUD TWICE TODAY YELLING IN HALLWAY AND ESCALATING. SHE REMOVED HERSELF FROM THE HALLWAY AND CONTINUED TO YELL IN HER ROOM FOR 5-10 MINUTES BUT WAS ABLE TO START CALMING HERSELF AND STOP YELLING. CHECKED ON THROUGH THE WINDOW WHEN YELLING CEASED AND FOUND HER TO BE WRITING ON DRY [email or web address] BOARD. EATING MEALS WELL. CAN BE APPROPRIATE WITH CONVERATIONS AT TIMES. MOSTLY TANGETAL AND FLIGHTS OF IDEAS SPEECH. DAUGHTER JESS IN TO VISIT THIS AFTERNOON.
--- NOTE | 2021-10-13 05:43 | NUR ---
SHIFT SUMMARY PT VERY AGITATED, PACING, YELLING IN DICKEY & RM c PRESSURED TANGETABLE SPEECH AT BEGINNING OF SHIFT, MEDICATED EARLY c HS SEROQUEL & PT BECAME MORE CALM, COOPERATIVE & ABLE TO FOLLOW DIRECTIONS W/O YELLING AT STAFF. VSS. DENIES PAIN, N/V OR DYSPNEA. AWAITING PLACEMENT. PT UP IND & ABLE TO MAKE NEEDS KNOWN. WILL MONITOR.
--- NOTE | 2021-10-13 17:39 | NUR ---
SHIFT SUMMARY PT IN ROOM MORE TODAY THAN YESTERDAY. HAS WALKED IN HALLWAYS AND TWICE SHE STARTED TO HAVE LOUDER PRESSURED SPEECH WITH ONGOING TANGENTAL CONVERATIONS. TALKING WITH ANYONE IN HALLWAY. SON CALLED AND SPOKE WITH HER ON THE PHONE THIS MORNING. WAS VERY REPETITIVE WITH HER SPEECH TOO TALKING ABOUT HER SON CALLING.
--- NOTE | 2021-10-14 05:27 | NUR ---
SHIFT SUMMARY PATIENT APPEARED WORKED UP AFTER SPEAKNG WITH SON ON THE PHONE, WALKING UP AND DOWN THE HALLS WITH TANGENTIAL SPEECH, HOWEVER NON DISRUPTIVE TO OTHER PATIENTS OR STAFF, DENIES PAIN, VSS ON RA, INDEPENDENT FOR CARE, EVENING MEDICATION GIVEN WHOLE WITH PUDDING WITH NO COMPLICATIONS, PATIENT SLEPT THROUGHOUT THE NIGHT
--- NOTE | 2021-10-14 16:05 | NUR ---
SHIFT SUMMARY- PT ALERT, TALKATIVE (NONSENSICAL,) AND INDEPENDANT & ACTIVE IN ROOM. PT APPETITE ADEQUATE. PT COMPLIANT WITH MEDICATIONS. PT WITH CALL LIGHT NEAR BUT WILL AMBULATE TO HALLWAY TO MEET NEEDS DESIRED.
--- NOTE | 2021-10-14 17:26 | NUR ---
THIS TECHNICAL INSPECTOR HAS REVIEWED ALL NOTES AND ASSESSMENTS BY YUMI APONTE AND AGREES WITH THEM.
--- NOTE | 2021-10-15 04:53 | NUR ---
SHIFT SUMMRY PATIENT RESTED FOR MOST OF THE NIGHT, A&O X 1-2, DENIES PAIN, VSS ON RA, PATIENT UP WALKING INDEPENDENTLY IN THE HALLS, TANGENTIAL CONVERSATION CONTINUES, ANSWERS VERY FEW QUESTIONS DIRECTLY, EASILY REDIRECTABLE TONIGHT, EATING AND DRINKING WELL
--- NOTE | 2021-10-15 17:26 | NUR ---
SHIFT SUMMARY- PT INDEPENDANT IN ROOM. PT VSS. PT A&O X2. PT COOPERATIVE DURING SHIFT FOR CARE AND MEDS. CALL LIGHT WITH IN REACH.
--- NOTE | 2021-10-15 18:20 | NUR ---
THIS ROLL FINISHER REVIEWED YUMI APONTE'S NOTES AND ASSESSMENTS AND AGREES WITH THEM.
--- NOTE | 2021-10-16 05:11 | NUR ---
SHIFT SUMMARY PATIENT RESTED THROUGHOUT THE NIGHT, A&O X1-2, WALKING INDEPENDENTLY IN THE HALLS, TRANGENTIAL CONVERSATION CONTINUES, UNABLE TO FOLLOW A LINEAR CONVERSATION, DENIES PAIN, VSS ON RA
--- NOTE | 2021-10-16 13:11 | NUR ---
PT ANXIOUS/AGITATED GAVE PRESCRIBED MED, SEE EMAR.
--- NOTE | 2021-10-16 14:52 | NUR ---
offered pt shower items. all in bathroom. encouraged her to take. states maybe later. will encourage again.
--- NOTE | 2021-10-16 16:08 | NUR ---
SHIFT SUMMARY- PT EXPRESSED SOME AGGITATION AFTER LUNCH, MEDICATED PER EMAR. PT PLEASANT THROUGHOUT REMAIDER OF SHIFT. PT APPETITE GOOD. PT TOOK MEDS WITH PUDDING WELL. PT RESTING IN ROOM WITH CALL LIGHT NEAR.
--- NOTE | 2021-10-16 17:39 | NUR ---
pt took shower today.
--- NOTE | 2021-10-17 06:31 | NUR ---
SHIFT SUMMARY NOC: PT IN DICKEY FREQUENTLY TALKING TO STAFF. PT SPEEKS CLEARLY BUT SPEECH PATTERN IS NONSENSICAL, UNABLE TO FOLLOW SINGLE STORY LINE, REPEATS SAME STORY. PATIENT IS COMPLIANT WITH CARE AND HAS HAD NO ADVERSE BEHAVIORS.
--- NOTE | 2021-10-17 17:43 | NUR ---
SHIFT SUMMARY PT UP AND IN HALLWAY THIS MORNING. HAD AN EPISODE OF YELLING IN HALLWAY WITH VERY PRESSURED SPEECH. WHEN TAKING A PILL TO CALM HER DOWN SHE SAID SHE JUST NEEDED TO WALK BACK AND FORTH TO GET BETTER. PT WENT TO HER ROOM AND BEGAN TO CALM DOWN ON HER OWN. HAS BEEN SLEEPING MOST OF AFTERNOON.
--- NOTE | 2021-10-18 05:57 | NUR ---
SHIFT SUMMARY PT IS A 61 Y/O FEMALE, ADMITTED FOR PSYCHOSIS. SHE IS A&O X SELF AND FAMILY, INDEPENDENT AND WANDERS THE HALLS FREQUENTLY WHILE AWAKE. PT CAN BE AGITATED AND YELL OCCASIONALLY. NO C/O ACUTE PAIN, NAUSEA OR SOB. VITAL SIGNS STABLE. NO ACUTE CHANGES IN PT CONDITION NOTED DURING THE NIGHT. WILL CONTINUE TO MONITOR AND TREAT PER EMAR UNTIL HAND OFF TO DAY SHIFT RN.
--- NOTE | 2021-10-18 16:30 | NUR ---
SHIFT SUMMARY- PT A/O TO SELF ONLY. PT TALKS TO SELF FREQUENTLY, UP WANDERING IN ROOM AND HALLWAYS. NONSENSICAL WITH FLIGHT OF IDEAS. PT HAS BEEN COOPERATIVE WITH CARE TODAY. NO COMPLAINTS T/O THE DAY. CONTINUES TO AWAIT PLACEMENT. NO OTHER ACUTE CHANGES THIS SHIFT.
--- NOTE | 2021-10-19 05:41 | NUR ---
PATIENT IS ALERT AND VERY ENERGETIC. SPEECH IS CLEAR, AND IS ALMOST ALWAYS A FLIGHT OF IDEAS. SANGEETA WAS OOB PACING IN DICKEY WHENEVER SHE WAS AWAKE. NO SIGNS OF AGGRESSION, ANXIETY OR DISCOMFORT NOTED OVERNIGHT.
--- NOTE | 2021-10-19 13:40 | NUR ---
AOX 1-2; INDEPENDENT AND CAN MAKE NEEDS KNOWN. PT IS COOPERATIVER WITH MEDICATION AND CARE. PT TALKS FREQUENTLY, WITH FLIGHT OF IDEAS AND REPEATIVE STORIES. NO ADVERSE BEHAVIORS AND NO ACUTE CHANGES.
--- NOTE | 2021-10-20 05:10 | NUR ---
NO CHANGES OVERNIGHT. PATIENT CONTINUES TO PRESENT WITH A FLIGHT OF IDEAS. SHE WENT TO BED AROUND 2200 AND SLEPT ALL NIGHT
--- NOTE | 2021-10-20 14:40 | NUR ---
AOX1-2; INDEPENDENT AND CAN MAKE NEEDS KNOWN. PATIENT IS COOPERATIING WITH MEDICATION AND CARE. PATIENT TALKS FREQUENTLY, WITH FLIGHT OF IDEAS AND REPEATIVE STORIES. NO ADVERSE BEHAVIORS AND NO ACUTE CHANGES.
--- NOTE | 2021-10-20 15:41 | NUR ---
MAE BECAME VERY AGITATED WHEN HER SISTER CAME FOR A SHORT VISIT. WHEN HER SISTER LEFT THE PATIENT WENT INTO HER ROOM, STARTED YELLING AND THROWING ITEMS IN HER ROOM, INCLUDING PULLING OUT HER CALL LIGHT. SECURITY WAS CALLED AND IM ZYPREXA WAS GIVEN TO PATIENT, SHE WAS COOPERATIVE WITH THE MEDICATION. PATIENT HAS CALMED DOWN AND NO LONGER SHWING SIGNS OF AGITATION; STILL HAVING FLIGHT OF IDEAS AND TALKING RAPIDLY.
--- NOTE | 2021-10-20 16:37 | NUR ---
PATIENT BECAME AGITATED AGAIN YELLING AND SLAMMING HER ROOM DOOR. CONTINUED YELLING AND THROWING ITEMS IN HER ROOM. MD INFORMED, VERBAL ORDER PO 1MG ATIVAN ORDER. PATIENT TOOK MEDICATION. RN WILL CONTINUE TO MONITOR.
--- NOTE | 2021-10-20 18:30 | NUR ---
PATIENT STILL AGITATED AND YELLING IN HER ROOM AT 1750. MASTER SHIP INFORMED, RECEIVED VERBAL ORDER FOR PO SEROQUEL 50MG. PATIENT COOPERATIVE WITH TAKING MEDICATION. PATIENT IS CURRENTLY CALM AND ATE HER DINNER. RN WILL CONTINUE TO MONITOR.
--- NOTE | 2021-10-21 04:34 | NUR ---
SHIFT SUMMARY: PATIENT ASLEEP AT SHIFT CHANGE. SHE WOKE UP AT 2300. PATIENT WAS PLEASANT HAVING MEANINGFUL CONVERSTATION WITH STAFF. SHE REMAINS WITH PRESSURED SPEECH AND FLIGHT OF IDEAS. SHE RECALLS THE EVENTS WITH HER SISTER FROM EARLIER IN THE AFTERNOON AND APOLGOZED FOR HER BEHAVIOR. SHE VERBALIZES ONGOING FRUSTRATION WITH SISTER. HAS REMAINED AWAKE REMAINDER IF THE NIGHT COLORING QUIETLY IN HER ROOM AND WANDERING OUT TO TALK TO STAFF INTERMITTENTLY.
--- NOTE | 2021-10-21 15:00 | NUR ---
AOX1-2, INDEPENDENT AND CAN MAKE NEEDS KNOWN. PATIENT COOPERATING WITH MEDICATION AND CARE. PATIENT TALKS FREQUENTLY, WITH FLIGHT OF IDEAS, REPEATIVE STORIES, AND CAN BE LABILE. CURRENTLY NO ADVERSE BEHAVIORS AND NO ACUTE CHANGES. CALL LIGHT IN REACH, PATIENT DOESN'T USE IT.
--- NOTE | 2021-10-22 04:47 | NUR ---
SHIFT SUMMARY - NO ACUTE CHANGES THROUGHOUT THIS SHIFT. PT HAS BEEN SLEEPING FOR APPX 4-5 HOURS TONIGHT. PT CONTINUES WITH DISORGANIZED THOUGHTS. PT HAS BEEN COOPERATIVE WITH CARE. PT INDEPENDENT WITH AMBULATION IN THE HALLS. PT IS AWAITING PLACEMENT - CM ON THE CASE. WILL CONTINUE TO MONITOR UNTIL AM SHIFT CHANGE.
--- NOTE | 2021-10-22 14:39 | NUR ---
AOX1-2, INDEPENDENT, CAN MAKE NEEDS, KNOWN, COOPERATING WITH MEDICATION AND CARE. PATIENT WALKS FREQUENTLY, WITH FLIGHT OR IDEAS, REPEATIVE STORIES, AND CAN BE LABILE. CURRENTLY NO ADVERSE BEHAVIORS OR EVENTS. NO ACUTE CHANGES. NO SIGNS OF PAIN, ANXIETY, OR AGGRESSION. CALL LIGHT IN REACH, PATIENT DOESN'T USE IT.
--- NOTE | 2021-10-23 15:12 | NUR ---
AO1-2, INDEPENDENT AND CAN MAKE NEEDS KNOWN. PATIENT COOPERATING WITH MEDICATION AND CARE. PATIENT TALKS FREQUENTLY, WITH FLIGHT OF IDEAS, REPEATIVE STORIES, AND CAN BE LABILE. CURRENTLY NO ADVERSE BEHAVIORS OR EVENTS. NO ACUTE CHANGES. NO SIGNS OF PAIN, ANXIETY, OR AGGRESSION. CALL LIGHT IN REACH, PATIENT DOESN'T USE IT.
--- NOTE | 2021-10-24 03:54 | NUR ---
SHIFT SUMMARY PT SPENT MUCH OF THE EVENING SITTING OR WALKING IN THE HALLWAY. PT DID HAVE AN ISSUE WITH ONE STAFF MEMBER AND BECAME AGITATED. I WAS ABLE TO CALM THE PT AND GET HER BACK TO HER ROOM WITHOUT MEDICATING HER. PT HAS BEEN CALM SINCE THE INCIDENT AND HAS BEEN SLEEPING OFF AND ON TONIGHT. PT CALM, PLEASANT, AND COOPERATIVE WITH CARE FOR THIS RN. WILL CONTINUE TO MONITOR.
--- NOTE | 2021-10-24 15:53 | NUR ---
PATIENT INDEPENDENT AND CAN MAKE NEEDS KNOWN. PT COOPERATING WITH MEDICATION AND CARE. PT TALKS WITH FLIGHT OF IDEAS AND WALKS THE HALLS FREQUENTLY. CURRENTLY NO ADVERSE BEHAVIORS OR EVENTS. NO ACUTE CHANGES. CALL LIGHT IN REACH, PATIENT DOESN'T USE IT.
--- NOTE | 2021-10-25 05:25 | NUR ---
SHIFT SUMMARY: NO ACUTE CHANGES THROUGHOUT THE NIGHT. POST ADMINISTRATION OF 2100 SCHEDULED SEROQUEL PATIENT WAS ABLE TO REST COMFORTABLY THROUGHOUT THE NIGHT. AWOKE APPROXIMATELY 0500, CALM AND COOPERATIVE. NO EPISODES OF AGGITATION THROUGHOUT THE NIGHT. PATIENT CONTINUES TO HAVE FLIGHT OF IDEAS, RAMBLED SPEECH APPEARS DECREASED THIS MORNING.
--- NOTE | 2021-10-25 16:07 | NUR ---
DAYSHIFT SUMMARY Pt became agitated this am, unable to redirect behavior, PRN seroquel given. PRN effective, MD will ordered seroquel to be given QAM. No other changes in patient status, awaiting placement. Vitals stable.
--- NOTE | 2021-10-26 05:36 | NUR ---
SHIFT SUMMARY: PATIENT ALERT- ORIENTED TO SELF ONLY. CONTINUED RAMBLED SPEECH AND FLIGHT OF IDEAS. AT THE BEGINNING OF SHIFT PATIENT BEGAN TO BECOME INCREASINGLY IRRITATED, PACING, ANXIOUS, YELLING. POST ADMINISTRATION OF SCHEDULED SEROQUEL PATIENT WAS ABLE TO REST THROUGH THE NIGHT. CALM DEMEANOR THIS MORNING, FOLLOWING COMMANDS.
--- NOTE | 2021-10-26 16:36 | NUR ---
DAYSHIFT SUMMARY Pt became agitated this morning, PRN given. This afternoon pt became agitated again, walking the halls yelling, unable to redirect. MD ordered IM PRN, patient went back to room and calmed downed. No IM PRN administred. Vitals stable, no other concerns at this time. Pt awaiting placement.
--- NOTE | 2021-10-26 18:23 | NUR ---
Staff delivered dinner tray, pt pleasant, calm sitting in room. Staff left the room to continue passing trays. Pt began yelling, came out into the hallway, walking up and down the hallway yelling, she went into her room slammed the door and came back out. ordered STAT IM Haldol & Ativan for agitation. Called security for assistance. Staff entered pt room, pt followed directions, sat down on bed, and laid down. RN administred IM ativan/haldol to left thigh. MD said to give ativan/haldol, wait 20 mins and if needed given IM Benedryl. Pt currently in room, appears to be calm, she is not yelling or talking to herself right now.
--- NOTE | 2021-10-27 04:05 | NUR ---
SHIFT SUMMARY: PATIENT HAS SLEPT THE ENTIRE SHIFT POST ADMINISTRATION OF IM ATIVAN AND HALDOL THAT WAS ADMINISTERED DURING PREVIOUS SHIFT- IT WAS REPORTED PATIENT WAS VERY AGGITATED AT THAT TIME. PATIENT HAS INDEPENDENTLY GONE TO THE BATHROOM AND IMMEDIATELY RETURNED TO BED TONIGHT. OTHERWISE NO ACUTE CHANGES THROUGHOUT THE NIGHT.
--- NOTE | 2021-10-27 17:32 | NUR ---
SHIFT SUMMARY NO ACUTE CHANGES THIS SHIFT. PT WAS SLEEPING AT THE BEGINNING OF THE SHIFT. HER BEHAVIOR AND ATTITUDE WAS HER BASELINE TODAY. SHE SPENT MOST OF THE DAY IN HER ROOM, WALKING IN THE HALLWAY A COUPLE OF TIMES. SHE HAS BEEN COOPERATIVE. WILL CONTINUE TO MONITOR AND ASSESS UNTIL NOC SHIFT ARRIVES.
--- NOTE | 2021-10-28 05:24 | NUR ---
SHIFT SUMMARY NOC: NO ADVERSE EVENTS. PT COMPLIANT WITH CARE. PT SLEPT MOST OF NIGHT.
--- NOTE | 2021-10-28 18:08 | NUR ---
SHIFT SUMMARY PT AxOx1-2. ADMITTED FOR PSYCHOSIS W/ HX OF DEMENTIA INCLUDING BEHAVIOR DISTURBANCES. PT HAD DELUSIONS AND VISUAL HALLUCINATIONS ON THIS SHIFT, BUT WAS PLEASANT, COOPERATIVE, AND REDIRECTABLE WITH CARE. PT DENIES PAIN THIS SHIFT OR OTHER CONCERNS. VITALS REVIEWED. PT CURRENTLY SITTING IN CHAIR EATING DINNER WITH CALL LIGHT IN REACH.
--- NOTE | 2021-10-29 05:57 | NUR ---
SHIFT SUMMARY NOC: PT SLEPT ALL NIGHT. NO ADVERSE EVENTS.
--- NOTE | 2021-10-29 19:09 | NUR ---
SHIFT SUMMARY: PT ALERT AND ORIENTED TO SELF AND SURROUNDING. ADMITTED FOR PSYCHOSIS WITH DEMENTIA. PATIENT AMBULATES UP AND DOWN THE HALLWAY WITH NONSENSICAL SPEECH, BUT IS PLEASANT AND COOPERATIVE WITH CARE. PATIENT SOMETIMES SITS IN ROOM AND COLORS. SHE DENIES ANY PAIN THIS SHIFT. VSS THROUGHOUT SHIFT. MEDS GIVEN IN PUDDING. PATIENT RESTING COMFORTABLY IN ROOM NOW WITH CALL LIGHT IN REACH.
--- NOTE | 2021-10-30 05:24 | NUR ---
SHIFT SUMMARY NOC: PT SLEPT MOST OF SHIFT. PT HAS BEEN COMPLIANT WITH CARE. SPEECH NONSENSICAL AND RAMBLING. PT AWAITING PLACEMENT.
--- NOTE | 2021-10-30 18:40 | NUR ---
SHIFT SUMMARY: PT A/O TO SELF. PLEASANT AND COOPERATIVE WITH CARES/ADL'S. PT AMBULATED HALLS AND VISITED WITH STAFF THROUGHOUT THE DAY. SHE IS ABLE TO BE RE-DIRECTED WHEN NEEDED FOR CARES. PT STEADY ON FEET, EATING WELL AND DRINKING FLUIDS WELL. NO C/O PAIN, NO SOB OR S/S OF DISTRESS THROUGHOUT THE DAY.
--- NOTE | 2021-10-31 07:20 | NUR ---
SHIFT SUMMARY: PATIENT IS ORIENTED TO SELF, FLIGHT OF IDEAS WITH OCCASSIONAL HALLUCINATIONS, AUDITORY AND VISUAL. NO ACUTE CHANGES THIS SHIFT. AMBULATING IN THE DICKEY. COLORING PICTURES IS KEEPING PATIENT OCCUPIED THIS SHIFT.
--- NOTE | 2021-10-31 11:53 | NUR ---
AM NOTE MS MCWILLIAMS CONTINUES TO HAVE A FLIGHT OF IDEAS AND HALLUCINATIONS, BUT SHE HAS BEEN CALM, TOOK HER MEDS THIS MORNING. SHE HAS BEEN UP AMBULATING IN THE HALLS THIS MORNING, BUT MOSTLY OCCUPIED WITH HER BOOKS AND PENCILS IN HER ROOM. WHEN ASKED SHE C/O MILD MID BACK PAIN, BUT SHE HAS NOT MENTIONED IT AGAIN.
--- NOTE | 2021-10-31 17:17 | NUR ---
SHIFT SUMMARY SEE PREVIOUS NOTE. FLIGHT OF IDEAS AND HALLUCINATIONS UNCHANGED. AMBULATORY IN THE HALLWAY AND COLORING PICTURES IN HER ROOM. NO C/O PAIN/SOB SINCE DESCRIBING MILD BACK ACHE AT BEGINNING OF SHIFT. CALL LIGHT IN REACH.
--- NOTE | 2021-11-01 03:01 | NUR ---
SHIFT SUMMARY NO ACUTE CHANGES OVERNIGHT. PT INTERMITTENLY PACING IN THE HALLWAY. HAS SOME PARANOIA, AUDITORY HALLUCINATIONS, TALKING TO HER SELF. PT ENJOYS HER COLORING ART MATERIALS IN ROOM. MEDS MIXED WITH FOOD. VSS. INDEPENDENT IN ROOM. CALL LIGHT WITHIN REACH. WLL CONTINUE TO MONITOR AND WILL PROVIDE REPORT TO ONCOMING NURSE.
--- NOTE | 2021-11-01 16:20 | NUR ---
DAY SHIFT SUMMARY 61 YR OLD FEMALE PT AWAITING GUARDIANSHIP AND PLACEMENT. PT ON RA AND INDEPENDENT IN ROOM/HALLWAY. COOPERATIVE WITH CARE. NO ACUTE CHANGES THIS SHIFT. A/O TO SELF.
--- NOTE | 2021-11-01 22:12 | NUR ---
PT REFUSING PHYSICAL SHIFT ASSESSMENT AT THIS TIME.
--- NOTE | 2021-11-02 04:04 | NUR ---
PT A/O TO SELF. VS STABLE. PT REFUSED PHYSICAL SHIFT ASSESSMENT. PT WAS PACING THE HALLWAY EARLY IN SHIFT. PT GIVEN SCHEDULED SEROQUEL WITH GOOD EFFECT. PT RESTED AFTERWARDS. PT WAS TALKING TO SELF WHILE PACING HALLWAY AND WAS DELUSIONAL BUT NON VIOLENT. PT IS RESTING WITH CALL LIGHT WITHIN REACH AND BED IN LOW POSITION.
[2021-11-02 04:51] LABS: BASOPHILS ABSOLUTE AUTO 0.06 K/mm3 (0.00-0.23); BASOPHILS PERCENT AUTO 1 % (0-2); EOSINOPHILS ABSOLUTE AUTO 0.21 K/mm3 (0.00-0.68); EOSINOPHILS PERCENT AUTO 5 % (0-6); Hemoglobin 12.2 g/dL (11.5-16.0); IMMATURE GRAN PERCENT AUTO 0 % (0-1); LYMPHOCYTES ABSOLUTE AUTO 1.85 K/mm3 (0.84-5.20); LYMPHOCYTES PERCENT AUTO 40 % (21-46); MONOCYTES ABSOLUTE AUTO 0.39 K/mm3 (0.16-1.47); MONOCYTES PERCENT AUTO 8 % (4-13); Mean Corpuscular HGB 31.6 pg (26.0-34.0); Mean Corpuscular HGB Conc 32.1 g/dL (31.5-36.5); Mean Corpuscular Volume 98 fL (80-100); Mean Platelet Volume 9.2 fL (9.1-12.4); NEUTROPHILS ABSOLUTE AUTO 2.11 K/mm3 (1.96-9.15); NEUTROPHILS PERCENT AUTO 46 % (41-73); Platelet Count 234 K/mm3 (150-400); RDW Coefficient Variation 12.5 % (11.7-14.2); RDW Standard Deviation 44.9 fL (35.1-46.3); Red Blood Cell Count 3.86 M/mm3 (3.80-5.20); White Blood Cell Count 4.62 K/mm3 (4.00-11.30)
[2021-11-02 05:21] LABS: Albumin, Blood 3.3 g/dL (3.4-5.0); Albumin/Globulin Ratio 1.1 (0.8-1.8); Bilirubin, Total 0.3 mg/dL (0.1-1.0); Bun/Creatinine Ratio 44.4 (12.0-20.0); Calcium, Blood 9.7 mg/dL (8.5-10.1); Creatinine, Blood 1.08 mg/dL (0.40-1.00); Globulin, Blood 3.1 g/dL (2.2-4.0); Magnesium, Blood 2.6 mg/dL (1.6-2.4); Phosphorus, Blood 3.9 mg/dL (2.5-4.9); Potassium, Blood 4.5 mmol/L (3.5-5.5); Total Protein, Blood 6.4 g/dL (6.4-8.2)
--- NOTE | 2021-11-02 06:07 | NUR ---
STUDENT NURSE NOTES AND DOCUMENTS REVIEWED AND IN AGREEMENT WITH.
--- NOTE | 2021-11-02 18:27 | NUR ---
SHIFT SUMMARY 61 Y FEMALE MEDICALLY STABLE AWAITING ON PLACEMENT. PT IS A&O AND COORPERATIVE WITH CARE. PT DOES HAVE SOME PARANOID THOUGHTS AND NON-SENSICAL CONVERSATION AT TIMES. PT IS UP IND AND IND WITH ALL ADL'S. NO OTHER CHANGES THIS SHIFT.
--- NOTE | 2021-11-02 22:16 | NUR ---
PT IS REFUSING PHYSICAL SHIFT ASSESSMENT AT THIS TIME.
--- NOTE | 2021-11-03 04:00 | NUR ---
PT IS A/O TO SELF. VS STABLE. PT HAS PARANOID DELUSIONS AND SPEAKING NON SENSICALLY. PT REFUSED PHYSICAL ASSESSMENT BUT DID AGREE TO TAKING PRESCRIBED MEDICATION. PT WAS WORKED UP BUT POLITE TO NURSING STAFF. PT IS RESTING WITH MUSIC PLAYING, CALL LIGHT WITHIN REACH, AND BED IN LOW POSITION.
--- NOTE | 2021-11-03 05:34 | NUR ---
CCTV TECHNICIAN NOTES AND DOCUMENTATION REVIEWED AND IN AGREEMENT
--- NOTE | 2021-11-03 16:50 | NUR ---
SHIFT SUMMARY 61 Y FEMALE MEDICALLY STABLE AWAITING ON PLACEMENT. PT IS A&O AND COORPERATIVE WITH CARE. PT DOES HAVE SOME PARANOID THOUGHTS AND NON-SENSICAL CONVERSATION AT TIMES. PT IS UP IND AND IND WITH ALL ADL'S. PT DID HAVE ONE EPISODE OF AGGITATION TODAY AND WAS CUSSING AT OTHER PATIENTS AND YELLING IN THE DICKEY. PT DID AGREE TO TAKE MEDICATION AND RETURN TO HER ROOM AND NAP. NO OTHER CHANGES THIS SHIFT.
--- NOTE | 2021-11-04 05:45 | NUR ---
PT A/O TO SELF. VS STABLE. PT HAS PARANOID DELUSIONS AND SPEAKING NON SENSICALLY PACING UP AND DOWN HALLWAY. PT ALLOWED PHYSICAL ASSESSMENT AND TOOK PRESCRIBED MEDICATION. PT WAS POLITE TO STAFF. PT IS CURRENTLY PACING UP AND DOWN HALLWAY WITH PARANOID DELUSIONS.
--- NOTE | 2021-11-04 06:28 | NUR ---
VACUUM CLEANER ASSEMBLER NOTES AND DOCUMENTS REVIEWED AND IN AGREEMENT
--- NOTE | 2021-11-04 16:53 | NUR ---
SHIFT SUMMARY PATIENT DENIES PAIN, NAUSEA, AND SHORTNESS OF BREATH. PATIENT IS IND IN ROOM. PATIENT FREQUENTLY AMBULATES IN HALLWAY. PATIENT HAS A LOT OF NON-SENSICAL SPEECH. PATIENT DID NAP THIS AFTERNOON FOR AWHILE. PATIENT IS EATING AND DRINKING WELL. PATIENT IS PLEASANT AND COOPERATIVE WITH CARE. PATIENT IS AWAITING MEMORY CARE PLACEMENT.
--- NOTE | 2021-11-05 03:59 | NUR ---
SUMMARY: PT A/OX2-3, IS INDEPENDENT IN ROOM AND HALLWAY AND IS PLEASANT AND COOPERATIVE W/CARE. SHE SPEAKS NONSENSICALLY MUCH OF THE TIME BUT IS ABLE TO SPECIFY NEEDS AND SELF CARE FOR ADL'S. PT DENIED PAIN, COMPLAINTS AND SLEPT MUCH OF NOCTE. NO ACTUTE CHANGES, VSS/AFEBRILE. MEMORY CARE PLACEMENT PENDING. WCTM AND REPORT TO DAY RN.
--- NOTE | 2021-11-05 17:45 | NUR ---
SHIFT SUMMARY PT A&O X3, MOOD UP AND DOWN T/O SHIFT. PT PACING HALLS T/O SHIFT RAMBLING ABOUT PAST LIFE EXPERIENCES. PT BECAME AGGITATED T/O SHIFT- MEDICATED PER EMAR. AMBULATING W/ STEADY GAIT. TOLERATING PO INTAKE WELL. CALL LIGHT AVAILABLE IN ROOM. VSS.
--- NOTE | 2021-11-06 04:24 | NUR ---
SUMMARY: PT A/OX3, IS INDENPENDENT IN ROOM/HALLS AND SELF CARES FOR ADL'S. SHE WAS PLEASANT AND COOPERATIVE W/CARE AND SPECIFIES NEEDS DESPITE FREQ NONSENSICAL SPEECH AND RAMBLING OF PREVIOUS LIFE EXPERIENCES. PT TOLERATED HS MEDS, DENIED NEEDS/COMPLAINTS AND SLEPT MUCH OF THE SHIFT. NO ACUTE CHANGES, VSS/AFEBRILE. PLACEMENT PENDING. WCTM AND REPORT TO DAY RN.
--- NOTE | 2021-11-06 13:47 | NUR ---
SHIFT SUMMARY NO ACUTE CHANGES TO PRESENT THIS SHIFT. PT CONTINUES TO WAIT FOR PLACEMENT. NO C/O. AMBULATES INDEPENDENTLY UP AND DOWN THE DICKEY AND IN RM FREQUENTLY ALL DAY LONG. PER SHIFT REPORT, PT TOOK A SHOWER ON HER OWN THIS AM AND DRESSED HERSELF. EATS AND DRINKS WELL. HAS BEEN PLEASANT AND CO-OP WITH CARE. ABLE TO MAKE NEEDS KNOWN.
--- NOTE | 2021-11-06 17:27 | NUR ---
pt was in the hallway sitting in a chair at the begining of the shift. pt ambulates independantly in the room and hallways. pt has been pleasant throughout the shift. she became agitated with another pt briefly. pt was pb to be redirected and calmed down. pt took medication and followed directions during assessment. pt has eaten all meals throughout the shift. pt has been pleasant and calm with other pt and staff. pt is waiting on placement currently. pt in room coloring quietly.
--- NOTE | 2021-11-07 04:21 | NUR ---
Patient up in cook at beginning of shift. Pleasant and conversive. Steady when up. Voiding independently in the the toilet. Patient able to swallow her night medications whole with ice cream. Patient slept the majority of the shift.
--- NOTE | 2021-11-07 12:36 | NUR ---
PT IS VERY AGITATED THIS AFTERNOON. SHE SPOKE WITH ANOTHER PT IN THE HALLWAY AND THEY DISAGREED ABOUT SOMETHING. BOTH BECAME UPSET AND MS MCWILLIAMS WAS NOT ABLE TO DESCALATE. AN EXTRA DOSE OF SEROQUEL WAS ORDERED.
--- NOTE | 2021-11-07 18:46 | NUR ---
SHIFT SUMMARY NO ACUTE CHANGES THIS SHIFT. PT VERY IRRITATED. HAD TO CALL FOR EXTRA DOSE OF SEROQUAL TO DESCALATE. STILL WAITING ON PLACEMENT
--- NOTE | 2021-11-08 05:18 | NUR ---
Patient up adlib in room and cook. Calm and cooperative with care overnight.
--- NOTE | 2021-11-08 17:36 | NUR ---
SHIFT SUMMARY NO ACUTE CHANGES. PT CALM AND COOPERATIVE TODAY. DAUGHTER WAS CONTACTED AND TOLD TO COME PICK HER UP TODAY SHE IS NOT ELIGIBLE TO BE PLACED IN A FACILITY ON MEDICAID. SHE WAS GIVEN UNTIL TOMORROW EVENING TO PICK HER UP.
--- NOTE | 2021-11-09 04:48 | NUR ---
Patient calm and cooperative overnight. Up independently in her room and halls. Voiding. No voiced complaints. Patient is to be DC from facility as soon as today, pending family picking the patient up.
--- NOTE | 2021-11-09 08:00 | NUR ---
pt wondering in the cook, talking her herself with hand motions, mostly cooperative with care, follows some commnads but her speech is not connected to her now, and disjointed, is calm, lungs are clear t/o, hrr, no edema noted, ppp+2, cap refill <3sec, vs stable, afebrile, btx4, abd flat soft nontender, voids without diff, skin c/w/d, maew, claus, call light in reach.
--- NOTE | 2021-11-09 13:01 | NUR ---
pt ambulating halls, talking a lot, no acute changes.
--- NOTE | 2021-11-09 18:26 | NUR ---
pt has stayed in her room writing and coloring for the most part of the shift, has roamed the halls talking to herself and everyone she encounters, no acute events this shift. call light in reach.
--- NOTE | 2021-11-10 04:39 | NUR ---
SHIFT SUMMARY PT WALKS TO HALLS FREQUENTLY WHEN AWAKE. TALKS TO STAFF AND HERSELF. SPEECH IS DISCONNECTED AND SCATTERED. MOSTLY PLEASANT. PT DOES GET UPSET AT TIMES WITH SOME CONVERSATIONS. PT COOPERATIVE. ALLOWED FOR VITAL SIGNS AND TOOK MEDICATIONS THIS EVENING. SLEPT OFF AND ON. NO ACUTE CHANGES THIS SHIFT.
--- NOTE | 2021-11-10 17:16 | NUR ---
PATIENT WAS BUSY IN HER ROOM, WRITING ALEKS WORDS AND COLORING IN HER BOOKS. SHE SPENT MOST OF THE DAY IN HER ROOM AND HAD NO COMPLAINTS.
--- NOTE | 2021-11-11 05:05 | NUR ---
SHIFT SUMMARY PT SLEPT WELL THIS EVENING. SLEPT MOST OF THE NIGHT. WHEN AWAKE PT WALKS THE HALLS. TALKING NON STOP. SPEECH IS DISJOINTED AND SCATTERED. JUMPS FROM ONE TOPIC TO ANOTHER. FREQUENTLY NONSENSICAL. HOWEVER, PT WAS PLEASANT AND COOPERATIVE. NO ACUTE CHANGES THIS SHIFT.
--- NOTE | 2021-11-11 10:45 | NUR ---
[facility] HAS BEEN TRYING TO PLACE RESIDENT. PATIENTS DAUGHTER ASSUMED GUARDIANSHIP SO THAT MEDICAID COULD BE APPLIED FOR. MEDICAID WAS DENIED MOSTLY BECAUSE OF THE PATIENT AGE, I UNDERSTAND IT. BECAUSE DAUGHTER HAS GUARDIANSHIP, DAUGHTER IS NOW RESPONSIBLE TO COME CARDIAC CATH TECH THE PATIENT AND ASSUME CARE, SHE IS NO LONGER APPROPIRATE FOR HOSPITAL LEVEL OF CARE. THE [facility] STATED THAT THE PATIENT DOES HAVE SOME MENTAL HEALTH BENEFITS, BUT THEY ARE OUT PATIENT BENEFITS. SHE ISN'T ABLE TO QUALIFY FOR IN-PATIENT MENTAL HEALTH BENEFITS BECAUSE OF HER DEMENTIA DUAL DIAGNOSIS. THE PATIENT YOUNGEST DAUGHTER CALLED THE HOSPITAL AND STATED THAT SHE WILL BE HERE BY 4PM TO CARDIAC CATH TECH RESIDENT.
--- NOTE | 2021-11-11 15:27 | NUR ---
PATIENT IS SET TO DISCHARGE LATER TODAY. SHE WAS ASSISTED WITH A SHOWER AND HER BELONGINGS HAVE BEEN PACKED UP. MANY PAGES OF PAPER WITH SCRIBBLED WORDS/COLORING, ITEMS FROM THE MEDICAL FLOOR LIKE KLEENEX BOXES, LOTIONS SHAMPOOS, FRUIT CUPS WERE PICKED UP AND EITHER PACKED OR THROWN OUT ACCORDINGLY. PATIENT IS NOW DRESSED AND WALKING THE HALLWAY TALKING NONSENSICLE SPEECH LOUDLY/RAPIDLY.
[2021-11-11] MEDS ORDERED: AMLO5 PO (15:49)
[2021-11-11] MEDS ORDERED: IRBE150 PO (15:50)
[2021-11-11] MEDS ORDERED: QUET200 PO (15:50)
[2021-11-11] MEDS ORDERED: Seroquel Xr50 MG PO (15:50)
--- NOTE | 2021-11-11 16:34 | NUR ---
PATIENT WAS DISCHARGED TO HOME WITH HER DAUGHTER AT 1630. EDUCATION ABOUT FOLLOW UP APPT., MEDICATIONS, AND CONDITION WERE REVIEWED WITH THE PATIENT AND HER DAUGHTER. MEDICATION SCRIPTS WERE FAXED TO [facility]. THE PATIENT WAS WHEELED DOWNSTAIRS WITH STAFF AND DAUGHTER.
== END 2021-11-11 16:32 | disposition home or self-care (01) ==
LOC: ER 21:19 → EOR 21:20 → MEDS 21:20 → EOR 21:20 → ER 09-04 14:58 → MEDS 09-04 14:58 → EOR 09-04 20:06 → MEDS 09-24 00:14
PROVIDERS: Hospitalist; Internal Medicine; Physician Assistant; ADMIT Student in an Organized Health Care Education/Training Program
DX: F20.0 Paranoid schizophrenia (principal); N39.0 Urinary tract infection, site not specified; B96.20 Unspecified Escherichia coli [E. coli] as the cause of diseases classified elsewhere; N17.9 Acute kidney failure, unspecified; F03.91 Unspecified dementia, unspecified severity, with behavioral disturbance; E03.9 Hypothyroidism, unspecified; R45.1 Restlessness and agitation; Z91.14 Patient's other noncompliance with medication regimen; I12.9 Hypertensive chronic kidney disease with stage 1 through stage 4 chronic kidney disease, or unspecified chronic kidney disease; N18.30 Chronic kidney disease, stage 3 unspecified; Z20.822 Contact with and (suspected) exposure to COVID-19
CPT/HCPCS: 0241U; 36415; 80048; 80053; 80178; 81001; 81025; 83735; 84100; 84439; 84443; 84481; 85025; 87077; 87086; 87186; 96372; 97129; 97165; 99285; A9270; G0378; G0480; J1630; J2060; Q3014